=== PATIENT | male | born 1970 | race Caucasian/White ===

== ENCOUNTER → 2022-01-11 | Outpatient (CLI) | payer OTHER ==
--- NOTE | 2022-01-11 08:56 | US ---
EXAMINATION TYPE: US venous doppler duplex LE LT DATE OF EXAM: 01/11/2022 8:31 AM COMPARISON: NONE CLINICAL HISTORY: M60.9 MYOSITIS. Pain SIDE PERFORMED: Left TECHNIQUE: The lower extremity deep venous system is examined utilizing real time linear array sonog arron with graded compression, doppler sonography and color-flow sonography. VESSELS IMAGED: Common Femoral Vein Deep Femoral Vein Superior aspect of the Greater Saphenous Vein * Femoral Vein Popliteal Vein Proximal Calf Veins (* superficial vessels) Left Leg: Negative for DVT IMPRESSION: No evidence of DVT of the left lower extremity.
== END | disposition home or self-care (01) ==
LOC: RADUSWWP 08:15
DX: M60.9 Myositis, unspecified (principal)

== ENCOUNTER → 2022-08-16 | Outpatient (CLI) | payer OTHER ==
--- NOTE | 2022-08-16 09:09 | XR ---
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 TECHNIQUE: 3 views FINDINGS: Dental amalgam is present. Slight leftward nasal septal deviation. No retained metallic density noted within either orbit. IMPRESSION: No retained metal debris in the eyes. Dental amalgam. Clear for MRI.
--- NOTE | 2022-08-16 11:37 | MR ---
EXAMINATION TYPE: MR knee RT wo con DATE OF EXAM: 08/16/2022 COMPARISON: None HISTORY: PAIN IN RIGHT KNEE TECHNIQUE: Multiplanar, multisequence imaging of the right knee is performed without IV contrast. FINDINGS: MEDIAL MENISCUS: There is grade 3 abnormal linear signal involving the posterior horn of the medial m eniscus compatible with a meniscal tear. 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 CRUCIATE LIGAMENTS: The anterior and posterior cruciate ligaments are intact and unremarkable. COLLATERAL LIGAMENTS: The medial collateral ligament and lateral collateral ligament complex are inta ct and unremarkable. EXTENSOR MECHANISM: Visualized quadriceps and patellar tendons are intact. EFFUSION: Small amount of joint fluid is seen posteriorly. There is also small amount of fluid was r eversed. POPLITEAL CYST: No popliteal/amin cyst. TRICOMPARTMENT SPACES: A joint spaces are preserved. BONE MARROW SIGNAL: Nonspecific subcentimeter marrow signal alteration within the medial patella supe riorly likely post arthritic and reactive. Areas of grade III chondromalacia noted. Osteochondral def ect in the differential diagnosis with no free fragment. IMPRESSION: 1. Posterior horn medial meniscal tear extension body. 2. Small posterior knee joint effusion and small amount of fluid in the suprapatellar bursa. Area of reactive marrow edema suspected within the medial superior patella with adjacent grade III chondromal acia. No free fragment. 3. More globular morphologic signal alteration posterior horn lateral meniscus. Myxoid degeneration f avored over tear.
== END | disposition home or self-care (01) ==
LOC: RADMRIMAIN 08:09
PROVIDERS: ATTEND Physician Assistant Medical
DX: Z18.10 Retained metal fragments, unspecified (principal); M23.321 Other meniscus derangements, posterior horn of medial meniscus, right knee; M17.11 Unilateral primary osteoarthritis, right knee; M25.561 Pain in right knee; M25.461 Effusion, right knee
CPT/HCPCS: 70030